=== PATIENT | male | born 1995 | race Two or more races ===

== ENCOUNTER → 2022-02-12 13:39 | Emergency (ER) | payer SELFPAY ==
[~2022-02-12] VITALS: Ht 180.3 cm; Wt 105.0 kg
[~2022-02-12 13:39] MED LIST: ONDA-144 PO; ONDANSETRON ODT 4 MG TAB PO ONE
[2022-02-12 15:15] VITALS: BP 137/68
== END | disposition home or self-care (01) ==
LOC: ER 13:39
DX: S06.0X0A Concussion without loss of consciousness, initial encounter (principal); R06.4 Hyperventilation; V43.52XA Car driver injured in collision with other type car in traffic accident, initial encounter; Y93.89 Activity, other specified; Y92.410 Unspecified street and highway as the place of occurrence of the external cause; Y99.8 Other external cause status
CPT/HCPCS: 70450; 99284; Q0162